=== PATIENT | male | born 1995 | race Caucasian/White ===

== ENCOUNTER 2023-05-24 12:57 | Emergency (ER) | payer SELFPAY ==
[2023-05-24] MEDS ORDERED: Bicillin LA 2.4 MILL.UNITS/4 ML SYRINGE ONE (15:13)
[2023-05-24 19:04] LABS: Syphilis Antibody Nonreactive (Nonreactive); Syphilis Antibody Index 0.05 S/CO (<1.00 Non-Reactive)
== END 2023-05-24 15:38 | disposition home or self-care (01) ==
LOC: ERS 12:57
DX: Z20.2 Contact with and (suspected) exposure to infections with a predominantly sexual mode of transmission (principal)
CPT/HCPCS: 36415; 86780; 96372; 99283; J0561